=== PATIENT | male | born 1945 | race Caucasian/White ===

== ENCOUNTER 2020-01-23 10:42 | Outpatient (CLI) | payer MEDICARE, OTHER ==
--- NOTE | 2020-01-23 11:38 | MRI ---
Exam: MRI cervical spine without contrast HISTORY: Cervical radiculopathy. Left shoulder pain and left arm numbness.. COMPARISON: None FINDINGS: Appropriate T1 marrow signal intensity of the cervical vertebra. Cervical spine vertebral body heigh ts are maintained. There is no fracture. There is no significant STIR hyperintensity to suggest vertebral body edema or ligamentous injury. Visualized brain parenchyma, cervicomedullary junction, cervical cord and the upper thoracic cord hav e a normal size and signal intensity. Spondylolisthesis: C3-C4: 3.2 mm of retrolisthesis. C6-C7: 2 mm retrolisthesis. C7-T1: 1 mm anterolisthesis. C2-C3: No significant posterior disc abnormality. No significant central canal stenosis. Patent bilat eral neural foramina. Small amount of nonspecific fluid in the disc space. Endplates are preserved. C3-C4: Disc desiccation with moderate loss of disc space height. Broad-based disc osteophyte complex and ligamentum flavum thickening result in moderate central canal stenosis. Severe right and moderate left neural foraminal narrowing due to uncovertebral hypertrophy. C4-C5: Disc desiccation without significant loss of disc space height. Broad-based disc bulge abuts t he thecal sac. Mild deformity the midline cord. Mild central canal stenosis. Right neural foramen is patent. Moderate left neural foraminal narrowing due to uncovertebral and facet hypertrophy. C5-C6: Disc desiccation with moderate loss of disc space height. Broad-based disc osteophyte complex abuts the thecal sac. Mild deformity of the cervical cord. Mild to moderate central canal stenosis. No cord signal abnormality. Moderate to severe right and moderate left neural foraminal narrowing due to uncovertebral hypertrophy. Small perineural sleeve cyst in the right neural foramen. C6-C7: Disc desiccation with moderate loss of disc space height. There is a broad-based disc osteophy te complex with slight inferior and superior disc migration. Mild central canal stenosis. Moderate bilateral neural foraminal narrowing. C7-T1: Disc desiccation with mild loss of disc space height. No significant central canal stenosis or significant neural foraminal narrowing. IMPRESSION: Multilevel degenerative changes of the cervical spine as detailed above. Transcribed Date/Time: 01/23/2020 1:07 PM
== END 2020-01-23 10:43 | disposition home or self-care (01) ==
LOC: TBSIIMAG 10:42
PROVIDERS: ATTEND Orthopaedic Surgery
DX: M47.22 Other spondylosis with radiculopathy, cervical region (principal)
CPT/HCPCS: 72141

== ENCOUNTER 2023-01-01 07:54 | Outpatient (CLI) | payer MEDICARE, OTHER | END 2023-01-01 07:55 | disposition home or self-care (01) | LOC: SCSMRI 07:54 | PROVIDERS: ATTEND Orthopaedic Surgery Hand Surgery | DX: M47.22 Other spondylosis with radiculopathy, cervical region (principal); M48.02 Spinal stenosis, cervical region; M50.11 Cervical disc disorder with radiculopathy, high cervical region; M50.122 Cervical disc disorder at C5-C6 level with radiculopathy; M50.121 Cervical disc disorder at C4-C5 level with radiculopathy | CPT/HCPCS: 72141 ==